=== PATIENT | female | born 1965 | race Caucasian/White ===

== ENCOUNTER 2019-09-28 11:28 | Day surgery (SDC) | payer OTHER ==
[~2019-09-28] VITALS: Ht 157.5 cm; Wt 80.3 kg
[~2019-09-28 11:28] MED LIST: ALBU90OI INH; ATEN25 PO; Abilify2 MG PO; CETI5 PO; CLON1 PO; ESCI20 PO; Flonase 0.05% N16 GM; LOVA20 PO; METO25ER PO; NAPR550 PO; Norco 5-325 Ta1 EACH PO; PRAZ1 PO; SERT50 PO; TRAM50 PO; TRAZ100 PO
--- NOTE | 2019-09-28 13:09 | NUR ---
"DAY SURGERY RN | REPORT OFF TO INOCENCIA WADSWORTH."
--- NOTE | 2019-09-28 18:04 | NUR ---
PT INTO PACU PAINFUL. FAIRLY CONSISTENTLY RATING PAIN 8/10. PO PAIN MEDS GIVEN. MAX DOSE FENTANYL GIVEN IN PACU. CALL PLACED TO dR. MARIA FOR EXTENDED RECOVERY PT REPORTS FELLING UNABLE TO SAFELY GO HOME AT THIS TIME. PT TO TRANSFER TO ROOM 213. AWAITING RN TO GIVE REPORT THAN WILL TRANSFER TO SURGICAL FLOOR.
--- NOTE | 2019-09-28 18:31 | NUR ---
PT ARRIVED TO THE ROOM AT APPROXIMATELY 1820. PT IS ALERT AND ORIENTED. RATES PAIN AT 7/10. PT IS ANXIOUS. BP ELEVATED. WILL CONTINUE TO MONITOR.
--- NOTE | 2019-09-28 19:27 | NUR ---
ELEVATED BLOOD PRESSURE DR. MARIA NOTIFIED OF BLOOD 186/101. ORDERS TO RESTART HOME MEDICATIONS AND TO MONITOR BP. WILL CONTINUE TO MANAGE PAIN. JOBY ALONSO RN NOTIFIED THAT HOME MEDICATION SHOULD BE GIVEN TO MANAGE BP AT THIS TIME AND CONTINUE TO MONITOR BP. REPORT GIVEN TO CELESTE WADSWORTH.
--- NOTE | 2019-09-29 05:34 | NUR ---
SHIFT SUMMARY: BRENDA IS POD1 FOR A RIGHT ORIF OF THE PATELLA. SHE IS A&OX4. SHE HAS AN IMMOBILIZER IN PLACE, BRISK CAPILLARY REFILL TO BLE. SHE HAS COMPLAINED OF 8-9/10 PAIN FOR WHICH THE OXYCODONE AND TRAMADOL HAVE BEEN MILDLY EFFECTIVE. SHE HAS RESTED INTERMITTENTLY THROUGHOUT THE SHIFT REPORTING THAT THE PAIN IN HER LEG FREQUENTLY WAKES HER UP. SHE HAS DECLINED TO GET OUT OF BED STATING THAT THIS IS THE ONLY NIGHT SHE WILL HAVE WHERE SHE DOESN'T HAVE TO GET UP TO GO TO THE BATHROOM. BP IS SLOWLY TRENDING DOWN TOWARDS NORMAL AND SHE IS VERY CONCERNED ABOUT THIS. DISCUSSED RELAXATION TECHNIQUES AND ENCOURAGED SELF-CARE. IV TO R FOREARM PATENT. SHE IS TOLERATING PO INTAKE WELL. SHE IS LYING IN BED WITH HER CALL LIGHT IN REACH.
--- NOTE | 2019-09-29 12:29 | NUR ---
DISCHARGE: PT ABLE TO GET TO BATHROOM WITH WALKER WITH MINIMAL ASSIST. PT REPORTS HAVING WALKER AT HOME AND FRIENDS THAT ARE STAYING AT HER HOUSE THAT WILL BE ALBE TO HELP. PT REPORTS PAIN CONTROLLED ON PO PAIN MEDICATION. PT EATING AND DRINKING, VOIDING. PT ASSSISTED WITH ADL'S PRN. PT REPORTS UNDERSTANDING OF DISCHARGE INSTRUCTIONS. SENT WITH INSTRUCTIONS AND SCRIPT. PT REPORTS HAVING ICE TO USE. PT GETTING RIDE FROM FRIENDS.
== END 2019-09-29 12:38 | disposition home or self-care (01) ==
LOC: ORSCMMR 11:28 → ORD 13:15 → ORSCMMR 13:15 → SURS 18:20 → ORSCMMR 09-29 12:38
PROVIDERS: Orthopaedic Surgery
PROC: 0QSD04Z Reposition Right Patella with Internal Fixation Device, Open Approach (ICD-10-PCS; principal; 2019-09-28 13:15)
DX: S82.014A Nondisplaced osteochondral fracture of right patella, initial encounter for closed fracture (principal); E11.9 Type 2 diabetes mellitus without complications; I10 Essential (primary) hypertension; J44.9 Chronic obstructive pulmonary disease, unspecified; Z87.891 Personal history of nicotine dependence; E66.01 Morbid (severe) obesity due to excess calories; Z68.37 Body mass index [BMI] 37.0-37.9, adult; Z79.899 Other long term (current) drug therapy; Q05.9 Spina bifida, unspecified
CPT/HCPCS: 82947; C1713; J0171; J0690; J1100; J1885; J2250; J2370; J2405; J2704; J2765; J3010; J7120

== ENCOUNTER 2020-10-29 07:38 | Day surgery (SDC) | payer OTHER ==
[~2020-10-29] VITALS: Ht 157.5 cm; Wt 84.5 kg
[2020-10-29] MEDS ORDERED: METPHE20 PO (08:00)
[2020-10-29] MEDS ORDERED: CLON.5 PO (08:01)
--- NOTE | 2020-10-29 09:29 | NUR ---
10/29/20 0929 Jayden Ceron 0.15MG EPI ADDED TO 30ML'S 0.5% BUPIVACAINE PL TO ACHIEVE A SOLUTION OF 0.5% BUPIVACAINE WITH EPI 1:200,000. 15ML'S OF THIS SOLUTION INJECTED INTO OPSITE BY CHIN AT 0920.
--- NOTE | 2020-10-29 10:05 | NUR ---
10/29/20 1005 Yuki Luo PT INTO RECLINER WITHOUT DIFFICULTY. PT TOLERATING PO INTAKE WELL. PT DENIES NAUSEA AND C/O 3/10 PAIN IN HER RIGHT KNEE. WILL MEDICATE WITH PO MEDICATION PRIOR TO DC. PT PLEASANT.
== END 2020-10-29 10:42 | disposition home or self-care (01) ==
LOC: ORSCSDS 07:38
PROVIDERS: Orthopaedic Surgery
PROC: 0QPD04Z Removal of Internal Fixation Device from Right Patella, Open Approach (ICD-10-PCS; principal; 2020-10-29 08:45)
DX: T84.9XXA Unspecified complication of internal orthopedic prosthetic device, implant and graft, initial encounter (principal); I10 Essential (primary) hypertension; J44.9 Chronic obstructive pulmonary disease, unspecified; E11.9 Type 2 diabetes mellitus without complications; Z87.891 Personal history of nicotine dependence; E66.9 Obesity, unspecified; Z68.34 Body mass index [BMI] 34.0-34.9, adult; Z79.899 Other long term (current) drug therapy
CPT/HCPCS: J0690; J1100; J2250; J2370; J2405; J2704; J3010; J7030; J7120

== ENCOUNTER 2024-11-20 08:42 | Day surgery (SDC) | payer OTHER ==
[~2024-11-20] VITALS: Ht 157.5 cm; Wt 80.1 kg
[~2024-11-20 08:42] MED LIST changes: +CLON.5 PO; +Dexmedetomidine HCL 200 MCG / 2 ML ONE; +METPHE20 PO; +Povidone-Iodine 450 DROP/30 ML Solution ONE; +Tetracaine HCl/Pf 0.5% Opth Soln 4 ml ONE
[2024-11-20] MEDS ORDERED: Diazepam 2 MG Tab ONE (08:47)
[2024-11-20] MEDS ORDERED: Diazepam 5 MG Tab ONE (08:48)
[2024-11-20] MEDS ORDERED: Midazolam HCl 1MG / ML 2ML Vial ONE (08:54)
[2024-11-20] MEDS ORDERED: SYMBICORT 160-4.6 GM (09:07)
[2024-11-20] MEDS ORDERED: HYDHCL25 (09:08)
[2024-11-20] MEDS ORDERED: PROZAC20 M1 PO (09:08)
[2024-11-20] MEDS ORDERED: Aspir 8181 MG PO (09:10)
[2024-11-20] MEDS ORDERED: BSS PLUS/EPINEPHRINE IRRIGATION SOLUTION 500 ML RIGHTEYE ONE (09:59)
[2024-11-20] MEDS ORDERED: Moxifloxacin HCL 0.5 MG/0.1 ML 0.4MLSYR RIGHTEYE ONE (09:59)
[2024-11-20] MEDS ORDERED: Lidocaine HCl/Pf 1% 5 ML VIAL XX ONE (09:59)
[2024-11-20 10:16] VITALS: BP 139/75
== END 2024-11-20 10:30 | disposition home or self-care (01) ==
LOC: ORSCSDS 08:42
PROVIDERS: Student in an Organized Health Care Education/Training Program
PROC: 08RJ3JZ Replacement of Right Lens with Synthetic Substitute, Percutaneous Approach (ICD-10-PCS; principal; 2024-11-20 10:00)
DX: H25.11 Age-related nuclear cataract, right eye (principal); E11.36 Type 2 diabetes mellitus with diabetic cataract; I10 Essential (primary) hypertension; J44.9 Chronic obstructive pulmonary disease, unspecified; E66.9 Obesity, unspecified; Z68.32 Body mass index [BMI] 32.0-32.9, adult; Z87.891 Personal history of nicotine dependence; H47.032 Optic nerve hypoplasia, left eye; H53.002 Unspecified amblyopia, left eye; Z86.73 Personal history of transient ischemic attack (TIA), and cerebral infarction without residual deficits; F32.A Depression, unspecified; Z79.82 Long term (current) use of aspirin; Z79.899 Other long term (current) drug therapy
CPT/HCPCS: A9270; J2003; J2250; V2632